=== PATIENT | female | born 1940 | race Caucasian/White ===

== ENCOUNTER → 2022-08-23 | Outpatient (CLI) | payer MEDICARE | LOC: COL.RAD 11:30 | DX: I63.89 Other cerebral infarction (principal) ==

== ENCOUNTER 2023-04-03 12:45 | Outpatient (RCR) | payer MEDICARE ==
[~2023-04-03 12:45] MED LIST: ASPIRIN 81M81 MG/TA2 PO; COZAAR 25MG25 MG/TAB PO; SYNTHROID0.125 MG/T PO; TOPROL XL 50MG50 MG PO
== END 2023-04-09 | disposition home or self-care (01) ==
LOC: WSST
DX: R41.3 Other amnesia (principal)

== ENCOUNTER 2023-05-08 12:45 | Outpatient (RCR) | payer MEDICARE | END 2023-05-09 | disposition home or self-care (01) | LOC: WSST | DX: R41.3 Other amnesia (principal); R48.9 Unspecified symbolic dysfunctions ==

== ENCOUNTER 2023-06-04 13:30 | Outpatient (RCR) | payer MEDICARE | END 2023-06-09 | disposition home or self-care (01) | LOC: WSST | DX: R48.9 Unspecified symbolic dysfunctions (principal); R41.3 Other amnesia ==

== ENCOUNTER → 2023-06-12 | Outpatient (CLI) | payer MEDICARE | LOC: COL.RAD 12:24 | DX: K21.9 Gastro-esophageal reflux disease without esophagitis (principal); K59.00 Constipation, unspecified | CPT/HCPCS: Q9967 ==

== ENCOUNTER → 2023-07-10 | Outpatient (RCR) | payer MEDICARE | END | disposition home or self-care (01) | LOC: WSST | DX: R48.9 Unspecified symbolic dysfunctions (principal); R41.3 Other amnesia ==

== ENCOUNTER 2023-10-13 04:24 | Emergency (ER) | payer MEDICARE ==
[~2023-10-13] VITALS: Ht 157.5 cm; Wt 52.7 kg
[2023-10-13 04:32] VITALS: TEMP 98.4
[2023-10-13 05:34] LABS: BASO % 0.4 % (0.0-2.0); EOS # 0.3 K/mm3 (0.0-0.7); EOS % 3.8 % (0.0-4.0); GRAN # 4.7 K/mm3 (1.4-6.5); GRAN % 62.6 % (42.2-75.2); HEMOGLOBIN 11.2 g/dl (12.5-16.0); LYMPH # 1.6 K/mm3 (1.2-3.4); LYMPH % 21.6 % (20.0-51.0); MEAN CELL VOLUME 91 fl (80.0-100.0); MEAN CORPUSCULAR HEMOGLOBIN 29 pg (27-31); MEAN CORPUSCULAR HGB CONC 32 g/dl (33.0-37.0); MEAN PLATELET VOLUME 10.3 fl (7.4-10.4); MONO # 0.8 K/mm3 (0.1-0.6); MONO % 11.3 % (1.7-9.3); PLATELET COUNT 229 K/mm3 (130-400); RED BLOOD COUNT 3.93 M/mm3 (4.10-5.30); REDCELL DISTRIBUTION WIDTH-CV 12.4 % (11.5-14.5)
[2023-10-13 05:35] LABS: PH 5.5 (5.0-8.5); URINE APPEARANCE CLEAR (CLEAR/HAZY); URINE BLOOD NEGATIVE (NEGATIVE); URINE COLOR YELLOW (YELLOW); URINE GLUCOSE NEGATIVE (NEGATIVE); URINE KETONE NEGATIVE (NEGATIVE); URINE NITRATE NEGATIVE (NEGATIVE); URINE PROTEIN(semi-quant) NEGATIVE (NEGATIVE); URINE UROBILINOGEN 0.2 E.U/dL (0.2-1.0)
[2023-10-13 05:42] LABS: HEMATOCRIT 35.6 % (37.0-47.0)
[2023-10-13 06:08] LABS: COLLECTION METHOD CLEAN CATCH
[2023-10-13] MEDS ORDERED: Ondansetron 4 MG/2 ML VIAL IV ONE (06:45)
[2023-10-13 07:00] VITALS: BP 148/78; PULSE 75
[2023-10-13 08:57] LABS: BLOOD UREA NITROGEN 19 mg/dL (10-20); CREATININE, serum 0.68 mg/dL (0.57-1.11); GLUCOSE 89 mg/dL (70-99); SODIUM 135 mEq/L (136-145)
[2023-10-13 08:58] LABS: ALANINE AMINOTRANSFERASE 25 U/L (0-55); ALBUMIN 3.9 g/dL (3.4-4.8); ALKALINE PHOSPHATASE 69 U/L (40-150); AST,SGOT 38 U/L (5-34); BILIRUBIN,TOTAL 0.8 mg/dL (0.2-1.2); CALCIUM 9.4 mg/dL (8.4-10.2); CHLORIDE 103 mEq/L (98-107); POTASSIUM 4.1 mEq/L (3.5-4.5); TOTAL PROTEIN 6.5 g/dl (6.2-8.1)
[2023-10-13 08:59] LABS: ANION GAP 10 mmol/L (7-16); TROPONIN-I < 0.030 ng/mL (0.00-0.033)
== END 2023-10-13 07:00 | disposition short-term general hospital (02) ==
LOC: COL.ER 04:24
PROVIDERS: Emergency Medicine
DX: S06.2X Diffuse traumatic brain injury (principal); S01.01XA Laceration without foreign body of scalp, initial encounter; I48.91 Unspecified atrial fibrillation; R40.2410 Glasgow coma scale score 13-15, unspecified time; Z79.82 Long term (current) use of aspirin; W19.XXXA Unspecified fall, initial encounter; W22.8XXA Striking against or struck by other objects, initial encounter
CPT/HCPCS: A4314; J2405; L0174